=== PATIENT | male | born 1980 | race Hispanic/Latino ===

== ENCOUNTER 2025-05-20 04:18 | Emergency (ER) | payer OTHER ==
[2025-05-20] MEDS ORDERED: Ketorolac Tromethamine 30 MG (1 mL) VIAL ONE (05:01)
== END 2025-05-20 05:11 ==
LOC: EEVIPCON 04:18 → ERS 04:18
DX: M25.571 Pain in right ankle and joints of right foot (principal); M25.552 Pain in left hip; M79.675 Pain in left toe(s); M79.642 Pain in left hand; M79.645 Pain in left finger(s); I10 Essential (primary) hypertension; W06.XXXA Fall from bed, initial encounter; Z55.6 Problems related to health literacy
CPT/HCPCS: 96374; J1885